=== PATIENT | male | born 1950 | race Hispanic/Latino ===

== ENCOUNTER → 2018-02-09 | Outpatient (CLI) | payer OTHER | END | disposition home or self-care (01) | LOC: RAH 12:31 | PROVIDERS: ATTEND General Practice | DX: D07.5 Carcinoma in situ of prostate (principal); M19.90 Unspecified osteoarthritis, unspecified site; E66.8 Other obesity; I10 Essential (primary) hypertension; K21.9 Gastro-esophageal reflux disease without esophagitis | CPT/HCPCS: 78306; A9503 ==